=== PATIENT | female | born 1965 | race African-American/Black ===

== ENCOUNTER 2017-10-17 09:25 | Emergency (ER) | payer SELFPAY ==
[~2017-10-17] VITALS: Ht 170.2 cm; Wt 82.6 kg
[2017-10-17 09:29] VITALS: BP 188/98
== END 2017-10-17 10:24 | disposition home or self-care (01) ==
LOC: ER 09:25
DX: J32.9 Chronic sinusitis, unspecified (principal); I10 Essential (primary) hypertension; F17.210 Nicotine dependence, cigarettes, uncomplicated; R42 Dizziness and giddiness; Z88.6 Allergy status to analgesic agent; Z90.710 Acquired absence of both cervix and uterus; R09.81 Nasal congestion

== ENCOUNTER 2017-12-28 11:41 | Emergency (ER) | payer SELFPAY ==
[~2017-12-28] VITALS: Ht 170.2 cm; Wt 76.2 kg
[2017-12-28] MEDS ORDERED: KETOROLAC TROMETH 60MG/2ML VIAL IM ONE (13:00)
[2017-12-28 13:26] VITALS: BP 177/92
== END 2017-12-28 13:33 | disposition home or self-care (01) ==
LOC: ER 11:41
DX: H60.93 Unspecified otitis externa, bilateral (principal); I10 Essential (primary) hypertension; F17.210 Nicotine dependence, cigarettes, uncomplicated; Z90.710 Acquired absence of both cervix and uterus; Z88.6 Allergy status to analgesic agent
CPT/HCPCS: 96372; 99283; J1885